=== PATIENT | male | born 1985 | race Caucasian/White ===

== ENCOUNTER 2024-04-26 11:22 | Emergency (ER) | payer BC ==
[~2024-04-26] VITALS: Ht 172.7 cm; Wt 61.5 kg
[2024-04-26 11:26] VITALS: TEMP 98
[2024-04-26 13:23] VITALS: BP 116/68; PULSE 68; RESP 17; O2SAT 98
== END 2024-04-26 13:25 | disposition home or self-care (01) ==
LOC: ER 11:22
DX: S61.302A Unspecified open wound of right middle finger with damage to nail, initial encounter (principal); W23.0XXA Caught, crushed, jammed, or pinched between moving objects, initial encounter; Y93.89 Activity, other specified; Y92.89 Other specified places as the place of occurrence of the external cause; Y99.8 Other external cause status
CPT/HCPCS: 29130; 73140; 99283; A6258